=== PATIENT | male | born 1960 | race Caucasian/White ===

== ENCOUNTER 2017-10-01 18:51 | Emergency (ER) | payer OTHER, MEDICARE ==
[~2017-10-01] VITALS: Ht 182.9 cm; Wt 74.7 kg
[~2017-10-01 18:51] MED LIST: PREDNISONE5 M2 PO; PROGRAF0.5 MG PO
[2017-10-01] MEDS ORDERED: LIDODERM 5% P1 PATCH TD (23:35)
[2017-10-01] MEDS ORDERED: VALIUM2 MG PO (23:35)
[2017-10-02 00:13] VITALS: BP 159/109
== END 2017-10-02 00:14 | disposition home or self-care (01) ==
LOC: EME 18:51
DX: M62.838 Other muscle spasm (principal); M54.2 Cervicalgia; G89.29 Other chronic pain; Z88.0 Allergy status to penicillin
CPT/HCPCS: 72040; 99281; 99284

== ENCOUNTER 2017-10-24 16:50 | Emergency (ER) | payer OTHER, MEDICARE ==
[~2017-10-24] VITALS: Ht 182.9 cm; Wt 68.2 kg
[~2017-10-24 16:50] MED LIST changes: +LIDODERM 5% P1 PATCH TD; +VALIUM2 MG PO
[2017-10-24 18:07] LABS: HEMOGLOBIN 14.9 G/DL (12.5-16.6); MCH 29.5 PG (29.0-34.0); MCHC 34.7 G/DL (30.0-36.0); MCV 85.1 FL (86-99); PLATELET COUNT 465 K/uL (156-360); RBC DIS.WIDTH-CV 13.4 % (11.8-14.6); RBC DIS.WIDTH-SD 41.3 % (39-53); RED BLOOD COUNT 5.05 M/uL (4.00-5.50); WHITE BLOOD COUNT 14.8 K/uL (4.1-10.2)
[2017-10-24 18:22] LABS: CHLORIDE 97 mEq/L (99-109); POTASSIUM 3.6 mEq/L (3.7-5.4); SODIUM 131 mEq/L (136-147)
[2017-10-24 18:24] LABS: GLUCOSE 285 mg/dL (70-99)
[2017-10-24 18:27] LABS: CREATININE 2.7 mg/dL (0.6-1.3); GFR ESTIMATE (CALCULATED) 26 mL/min/ (58.99-99999)
[2017-10-24 18:28] LABS: UREA NITROGEN (BUN) 49 mg/dL (9-23)
[2017-10-24 18:30] LABS: LIPASE 41 U/L (1.0-51.0)
[2017-10-24 18:51] LABS: APPEARANCE CLEAR ((CLEAR)); BILIRUBIN NEGATIVE; BLOOD NEGATIVE; COLOR YELLOW ((YELLOW)); GLUCOSE (STRIP) >=500; KETONES NEGATIVE; LEUKOCYTES NEGATIVE; NITRITE NEGATIVE; PROTEIN (STRIP) >=500; SPECIFIC GRAVITY 1.016 (1.000-1.030); UROBILINOGEN 0.2 MG/DL (0.2-1.0)
[2017-10-24 19:01] LABS: BACTERIA NONE SEEN /HPF; EPITHELIAL CELLS NONE SEEN /HPF; MUCUS NONE SEEN /LPF; RED BLOOD CELLS 0-5 /HPF (0-5); WHITE BLOOD CELLS 0-5 /HPF (0-5)
[2017-10-24 21:17] LABS: TROP-I INTERPRETATION NEGATIVE; TROPONIN-I < 0.01 ng/mL (0.0-0.30)
[2017-10-24 23:52] VITALS: BP 151/93
== END 2017-10-24 23:52 | disposition home or self-care (01) ==
LOC: EME 16:50
PROVIDERS: Physician Assistant
DX: E86.0 Dehydration (principal); R73.9 Hyperglycemia, unspecified; R06.02 Shortness of breath; R63.4 Abnormal weight loss; C44.41 Basal cell carcinoma of skin of scalp and neck; Z94.83 Pancreas transplant status; Z94.0 Kidney transplant status; Z79.52 Long term (current) use of systemic steroids; Z88.0 Allergy status to penicillin; Z68.20 Body mass index [BMI] 20.0-20.9, adult
CPT/HCPCS: 71046; 80048; 81003; 82948; 83690; 84484; 85027; 93005; 99281; 99285; J7030